=== PATIENT | male | born 1955 | race Caucasian/White ===

== ENCOUNTER → 2020-07-19 15:34 | Outpatient (BNVA) | payer MEDICARE, OTHER, SELFPAY | PROVIDERS: PCP Internal Medicine; Visit Provider Hospitalist | DX: J41.8 Mixed simple and mucopurulent chronic bronchitis (principal); R91.8 Other nonspecific abnormal finding of lung field; J92.9 Pleural plaque without asbestos; F17.200 Nicotine dependence, unspecified, uncomplicated | CPT/HCPCS: 99202 ==

== ENCOUNTER → 2021-01-17 11:20 | Outpatient (BNVA) | payer MEDICARE, OTHER, SELFPAY | PROVIDERS: PCP Internal Medicine; Visit Provider Hospitalist | DX: R91.8 Other nonspecific abnormal finding of lung field (principal); J92.9 Pleural plaque without asbestos; F17.200 Nicotine dependence, unspecified, uncomplicated | CPT/HCPCS: 99212 ==

== ENCOUNTER 2021-06-14 07:45 | Outpatient (REF) | payer MEDICARE, OTHER, SELFPAY ==
--- NOTE | ~2021-06-14 | CT_ITS ---
EXAMINATION: CT CHEST LUNG SCREENING CLINICAL INFORMATION: Current smoker. 30 pack-year history. COMPARISON: Previous chest CTs, most recent 05/31/2020. TECHNIQUE: Multidetector volumetric CT imaging of the chest was performed without contrast using low-dose technique. Additional 2D coronal and sagittal reformatted images and axial 3D maximum intensity projection (MIP) images were generated on the CT workstation. This CT examination was performed using dose optimization techniques as appropriate, variously including the following: *Automated exposure control *Adjustment of mA and/or kV according to patient size (this includes techniques or standardized protocols for targeted exams where dose is matched to indication/reason for exam; i.e. extremities or head) *Use of iterative reconstruction technique DLP: 157 mGy-cm FINDINGS: LUNGS: There is a 4 mm peripheral or subpleural right lower lobe nodule adjacent to the major fissure that is stable. There is a 3 mm peripheral or subpleural left lower lobe nodule along the fissure (axial image 204, series 4) that is able. These probably represent subpleural lymph nodes. The lungs are otherwise clear. No endobronchial or endotracheal lesion. MEDIASTINUM: There is coronary artery calcification. The heart size normal. No pericardial effusion. Upper normal thoracic aorta. Small mediastinal lymph nodes. No enlarged lymph nodes. The mediastinum is otherwise normal. PLEURA: There is no pleural effusion. No pleural mass or thickening. AXILLAE: No lymphadenopathy. UPPER ABDOMEN: Unremarkable. OSSEOUS STRUCTURES: There are severe degenerative changes of the spine. CT/CT lung screening IMPRESSION: Stable small pulmonary nodules probably representing subpleural lymph nodes. Coronary artery calcification. ASSESSMENT: Lung-RADS category 2: Benign RECOMMENDATION: Annual low-dose chest CT follow up recommended.
== END 2021-06-14 07:46 | disposition home or self-care (01) ==
LOC: HO.CT 07:45
PROVIDERS: PCP Internal Medicine; Visit Provider Physician Assistant Medical
DX: F17.210 Nicotine dependence, cigarettes, uncomplicated (principal)
CPT/HCPCS: 71271

== ENCOUNTER → 2022-01-18 10:19 | Outpatient (BNVA) | payer MEDICARE, OTHER, SELFPAY | PROVIDERS: PCP Internal Medicine; Visit Provider Hospitalist | DX: R91.8 Other nonspecific abnormal finding of lung field (principal); J92.9 Pleural plaque without asbestos; F17.200 Nicotine dependence, unspecified, uncomplicated; Z71.6 Tobacco abuse counseling | CPT/HCPCS: 99212 ==

== ENCOUNTER 2022-10-25 09:05 | Outpatient (REF) | payer MEDICARE, OTHER, SELFPAY ==
--- NOTE | ~2022-10-25 | CT_ITS ---
EXAMINATION: CT CHEST SCREENING CLINICAL INFORMATION: Nicotine dependence. COMPARISON: CT chest 06/14/2021 TECHNIQUE: Multidetector volumetric CT imaging of the chest is performed without contrast using low dose technique. Additional 2D coronal and sagittal reformatted images and axial 3D maximum intensity projection (MIP) images are generated on the CT workstation. This CT examination was performed using dose optimization techniques as appropriate, variously including the following: *Automated exposure control *Adjustment of mA and/or kV according to patient size (this includes techniques or standardized protocols for targeted exams where dose is matched to indication/reason for exam; i.e. extremities or head) *Use of iterative reconstruction technique DLP: 87 mGy-cm FINDINGS: LUNGS: The lungs are well-expanded and clear of acute pneumonic process. A former nodule right lower lobe adjacent to major fissure axial image 238/6, 4 mm nodule adjacent to left major fissure left lower lobe axial image 28/4. These nodules are stable. No additional nodules visualized MEDIASTINUM: The thyroid lobes are symmetric and normal. The central trachea and bronchi are widely patent. Heart size and the great vessels are normal caliber. No abnormal mediastinal or hilar lymph nodes seen. No pericardial effusion. CORONARY ARTERY CALCIFICATION: Mild coronary artery calcifications are present. PLEURA: There is no pleural effusion. No pleural mass or thickening. AXILLA: No lymphadenopathy. UPPER ABDOMEN: Visualized liver, spleen, pancreas and bilateral adrenal glands unremarkable. OSSEOUS STRUCTURES: No aggressive lytic or sclerotic process seen. There are degenerative disc changes mid dorsal spine with mild anterior wedging of mid dorsal vertebrae, stable. Ventral CT/CT lung screening IMPRESSION: Small suman fissural nodules right lower lobe and left lower lobe likely lymph nodes. They are stable. No additional nodules seen. Moderate coronary artery calcifications. ASSESSMENT: Lung-RADS category 2: Benign RECOMMENDATION: Low-dose annual CT chest
== END 2022-10-25 09:06 | disposition home or self-care (01) ==
LOC: HO.CT 09:05
PROVIDERS: PCP Internal Medicine; Visit Provider Physician Assistant Medical
DX: Z12.2 Encounter for screening for malignant neoplasm of respiratory organs (principal); F17.210 Nicotine dependence, cigarettes, uncomplicated
CPT/HCPCS: 71271

== ENCOUNTER 2023-10-29 10:11 | Outpatient (REF) | payer MEDICARE, OTHER, SELFPAY ==
--- NOTE | ~2023-10-29 | CT_ITS ---
EXAMINATION: CT LOW-DOSE SCREENING CHEST WITHOUT CONTRAST CLINICAL INFORMATION: Personal history of nicotine dependence. The patient has a 30 pack-year history of smoking, having quit 1 year ago. COMPARISON: CT chest 10/25/2022. TECHNIQUE: Multidetector volumetric CT imaging of the chest is performed on a Siemens SOMATOM Perspective scanner without contrast using low dose technique. Additional 2D coronal and sagittal reformatted images and axial 3D maximum intensity projection (MIP) images are generated on the CT workstation. This CT examination was performed using dose optimization techniques as appropriate, variously including the following: *Automated exposure control *Adjustment of mA and/or kV according to patient size (this includes techniques or standardized protocols for targeted exams where dose is matched to indication/reason for exam; i.e. extremities or head) *Use of iterative reconstruction technique TOTAL EXAM DLP: 127 mGy-cm. CTDIvol: 3.36 mGy. FINDINGS: PULMONARY NODULES: Some tiny unchanged pulmonary nodules are seen, the largest being a right lower lobe perifissural 4 mm lymph node (6:206 compare prior 6:238). LUNGS: Lungs bilaterally symmetrically expanded. There is mild emphysema and bronchial thickening. No effusion or pneumothorax. Central airways patent. MEDIASTINUM: No mediastinal, hilar or axillary adenopathy or free fluid collection. CORONARY ARTERY CALCIFICATION: Extensive. THYROID GLAND: Unremarkable to the extent seen. CARDIOVASCULAR STRUCTURES: Aortic and heart size normal. No pericardial effusion. CHEST WALL/AXILLA: Unremarkable. UPPER ABDOMEN: Included portions of the solid organs in the upper abdomen unremarkable on noncontrast imaging. OSSEOUS STRUCTURES: Again seen is a thoracic kyphosis with thoracic vertebral body wedge compression fractures and degenerative changes. CT/CT lung screening IMPRESSION: 1. No new or suspicious pulmonary nodules. 2. Incidental findings (s category): No significant incidental findings. ASSESSMENT: 1. Lung-RADS Category 2: Benign appearance or behavior of nodules. N/A RECOMMENDATION: Continued routine annual low-dose CT lung screening in 1 year is recommended. An order for CT CHEST LOW DOSE CANCER SCREENING ([id number]) can be placed.
== END 2023-10-29 10:12 | disposition home or self-care (01) ==
LOC: HO.CT 10:11
PROVIDERS: PCP Internal Medicine; Visit Provider Physician Assistant Medical
DX: Z12.2 Encounter for screening for malignant neoplasm of respiratory organs (principal); Z87.891 Personal history of nicotine dependence
CPT/HCPCS: 71271

== ENCOUNTER 2023-11-12 14:15 | Outpatient (AMB) | payer MEDICARE, OTHER, SELFPAY ==
--- NOTE | 2023-11-12 14:32 | HO.NEPHOV_ITS ---
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 He is longstanding diabetic. His blood sugars have been uncontrolled. His last A1c was 11. He denies retinopathy but has neuropathy. He has history of coronary artery disease needing PCI. He denies CVA, CHF, PAD, VINNY. He has not been taking Trulicity. He denies any pedal edema, nausea, vomiting, diarrhea, chest pain, shortness of breath, paroxysmal nocturnal dyspnea, orthopnea, hematuria or orthostatic symptoms. He denies taking excessive nonsteroidal anti- inflammatories. He does not have any epistaxis, recurrent sinusitis, sore throat, renal calculi, flank pain, hemoptysis, hematemesis, melena, new bone or back pain. His serum creatinine has been close to 1.6. He does not check his blood sugar or blood pressure at home. He did not have any new systemic complaints at the time of this office visit. [facility] Medical History (Updated 11/12/23 @ 15:06 by Shubham Braun MD) Hyperlipidemia Hypertension, essential, benign Diabetes mellitus type 2, controlled Personal history of nicotine dependence Obesity Mild dilation of ascending aorta Pneumonia Tobacco dependence Pleural thickening Pulmonary nodules COPD (chronic obstructive pulmonary disease) Family History Father Hypertension Social History Alcohol intake: current Patient Tobacco Use Status: Former Tobacco user Review of Systems Const All systems reviewed & are unremarkable except as noted in HPI and below Physical Exam Vital Signs: Last Vital Signs Pulse 61 11/12/23 14:33 BP 130/80 11/12/23 14:33 Pulse Ox 95 11/12/23 14:33 Oxygen Delivery Method Room Air 11/12/23 14:33 BMI result Body Mass Index 36.1 Const General: comfortable and no acute distress Orientation/consciousness: patient oriented x3 HEENT Head: Yes normocephalic Mouth: Normal oral and palatal mucosa present Eyes EOM: EOMs intact bilaterally Neck Neck: Yes supple Resp Auscultation: clear to auscultation bilaterally Cardio Jugular venous distension: no JVD Rate: regular rate GI Palpation (GI): Soft to palpation Auscultation: normal bowel sounds General: Yes no CVA tenderness Back/Spine/Pelvis Back: no CVA tenderness Skin General skin exam: no rashes or lesions noted Neuro General: patient oriented x3 and moves all extremities Extrem General: Yes no pedal edema Results Reviewed Nephrology Results: No Data to Display Assessment & Plan Assessment & Plan (1) CKD (chronic kidney disease) stage 3, GFR 30-59 ml/min: Code(s): N18.30 - Chronic kidney disease, stage 3 unspecified Category: Medical Qualifiers: Chronic kidney disease stage 3 subtype: stage 3a (GFR 45-59) Qualified Code(s): N18.31 - Chronic kidney disease, stage 3a (2) Hypertension: Code(s): I10 - Essential (primary) hypertension Category: Medical Qualifiers: Hypertension type: primary hypertension Qualified Code(s): I10 - Essential (primary) hypertension Plan Kavon has 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 His serum creatinine has been close to 1.6. He has history of hemoglobin A1c up to 11. He does not take Trulicity. He will benefit from weight loss. Secondary FSGS as well as vascular disease are in the differential. He is on Jardiance. I have ordered blood work including creatinine clearance. I plan to do imaging studies as well as possible renal biopsy based on evolving data. He was encouraged to check his blood sugar and blood pressure at home. He should maintain good hydration and avoid nonsteroidal anti-inflammatories. He is tolerating EFE inhibitor. I shall continue to work him up and optimize his medications based on evolving data. Answered all questions. Follow-up appointment given. Orders: Orders Protein Creatinine Ratio, Ur Today I10 - Essential (primary) hypertension, N18.30 - Chronic kidney disease, stage 3 unspecified Immunofixation Pnl, Serum Today I10 - Essential (primary) hypertension, N18.30 - Chronic kidney disease, stage 3 unspecified Electrolytes Today I10 - Essential (primary) hypertension, N18.30 - Chronic kidney disease, stage 3 unspecified Phospholipase A2 Receptor Pnl Today I10 - Essential (primary) hypertension, N18.30 - Chronic kidney disease, stage 3 unspecified Proteinase 3 PR3 Antibodies Today I10 - Essential (primary) hypertension, N18.30 - Chronic kidney disease, stage 3 unspecified Anti DNA DS Antibody Today I10 - Essential (primary) hypertension, N18.30 - Ch ronic kidney disease, stage 3 unspecified Creatinine Today I10 - Essential (primary) hypertension, N18.30 - Chronic kidney disease, stage 3 unspecified Blood Urea Nitrogen Today I10 - Essential (primary) hypertension, N18.30 - Chronic kidney disease, stage 3 unspecified Calcium Today I10 - Essential (primary) hypertension, N18.30 - Chronic kidney disease, stage 3 unspecified Hepatitis B Core Antibody Today I10 - Essential (primary) hypertension, N18.30 - Chronic kidney disease, stage 3 unspecified Hepatitis B Surface Antigen Today I10 - Essential (primary) hypertension, N18.30 - Chronic kidney disease, stage 3 unspecified Complement C4 Today I10 - Essential (primary) hypertension, N18.30 - Chronic kidney disease, stage 3 unspecified Complement C3 Today I10 - Essential (primary) hypertension, N18.30 - Chronic kidney disease, stage 3 unspecified Anti Glomerular Basement Memb Today I10 - Essential (primary) hypertension, N18.30 - Chronic kidney disease, stage 3 unspecified Myeloperoxidase Antibody Today I10 - Essential (primary) hypertension, N18.30 - Chronic kidney disease, stage 3 unspecified Creatinine Clearance Urine 24U Today I10 - Essential (primary) hypertension, N18.30 - Chronic kidney disease, stage 3 unspecified Coding Level of Care Code New Pt Level 4 (65386) Diagnoses Stage 3a chronic kidney disease N18.31 Chronic kidney disease stage 3 subtype: stage 3a (GFR 45-59) Primary hypertension I10 Hypertension type: primary hypertension
[2023-11-12 14:33] VITALS: BP 130/80; PULSE 61; O2SAT 95; BMI 36.1
== END 2023-11-12 15:11 | disposition home or self-care (01) ==
PROVIDERS: PCP Internal Medicine; Visit Provider Internal Medicine Nephrology
DX: N18.31 Chronic kidney disease, stage 3a (principal); I10 Essential (primary) hypertension
CPT/HCPCS: 99204

== ENCOUNTER → 2023-11-12 14:15 | Outpatient (BNVA) | payer MEDICARE, OTHER, SELFPAY | PROVIDERS: PCP Internal Medicine; Visit Provider Internal Medicine Nephrology | DX: I12.9 Hypertensive chronic kidney disease with stage 1 through stage 4 chronic kidney disease, or unspecified chronic kidney disease (principal); N18.31 Chronic kidney disease, stage 3a | CPT/HCPCS: 99202 ==

== ENCOUNTER 2023-11-26 11:48 | Outpatient (REF) | payer MEDICARE, OTHER, SELFPAY ==
[2023-11-26 18:30] LABS: Anion Gap 15 (12-20); Blood Urea Nitrogen 23 mg/dL (9-16); Calcium 10.3 mg/dL (8.4-10.2); Carbon Dioxide 24 mmol/L (22-29); Chloride 103 mmol/L (96-108); Estimated Glomerular Filt Rate 42; Potassium 4.1 mmol/L (3.3-5.1); Sodium 138 mmol/L (135-145)
[2023-11-26 18:37] LABS: Total Volume 24 Hour Urine 1625 mL
[2023-11-26 18:43] LABS: Protein/Creatinine Ratio, Ur 0.09 (<0.2); Total Protein Urine Random 27 mg/dL (<12)
[2023-11-26 18:57] LABS: Creatinine, 24Hr Urine 1.9 G/Day (1.0-2.0); Creatinine, mg/dL 118.68
[2023-11-26 19:13] LABS: Creatinine (CrCl) 1.65 mg/dL (0.5-1.4); Creatinine Clearance 81.1 mL/min (85-125)
[2023-11-27 08:11] LABS: HBc Num1 0.12 S/CO (0.00-0.79); HBsAGNum1 0.34 S/CO (0.00-0.99); Hepatitis B Core Antibody Nonreactive (Nonreactive); Hepatitis B Surface Antigen Negative (Negative)
[2023-11-28 10:08] LABS: Complement C3 163 mg/dL (82-185)
[2023-11-29 22:38] LABS: IgA 254 mg/dL (70-320); IgG 1042 mg/dL (600-1540); IgM 56 mg/dL (50-300)
[2023-12-03 06:59] LABS: Anti DNA DS Antibody <1 IU/mL; Anti Glomerular Basement Memb <1.0 AI; Myeloperoxidase Antibody <1.0 AI; Proteinase 3 PR3 Antibodies <1.0 AI
[2023-12-06 21:37] LABS: Phospholipase A2 IgG ELISA <4 RU/mL; Phospholipase A2 IgG IFA NEGATIVE (NEGATIVE)
== END 2023-11-26 11:49 | disposition home or self-care (01) ==
LOC: HO.HKASLDS 11:48
PROVIDERS: Visit Provider Internal Medicine Nephrology
DX: I10 Essential (primary) hypertension (principal); N18.30 Chronic kidney disease, stage 3 unspecified
CPT/HCPCS: 36415; 80051; 82310; 82565; 82570; 82575; 82784; 83520; 84156; 84520; 86021; 86160; 86225; 86255; 86334; 86704; 87340

== ENCOUNTER 2024-01-16 10:28 | Outpatient (AMB) | payer MEDICARE, OTHER, SELFPAY ==
--- NOTE | 2024-01-16 11:00 | HO.NEPHOV_ITS ---
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 He is longstanding diabetic. His blood sugars have been uncontrolled. His last A1c was 11. He denies retinopathy but has neuropathy. He has history of coronary artery disease needing PCI. He denies CVA, CHF, PAD, VINNY. He has not been taking Trulicity. He denies any pedal edema, nausea, vomiting, diarrhea, chest pain, shortness of breath, paroxysmal nocturnal dyspnea, orthopnea, hematuria or orthostatic symptoms. He denies taking excessive nonsteroidal anti- inflammatories. He does not have any epistaxis, recurrent sinusitis, sore throat, renal calculi, flank pain, hemoptysis, hematemesis, melena, new bone or back pain. His serum creatinine has been close to 1.6. He does not check his blood sugar or blood pressure at home. He did not have any new systemic complaints at the time of this office visit. [facility] Medical History (Updated 01/16/24 @ 11:16 by Shubham Braun MD) Hyperlipidemia Hypertension, essential, benign Diabetes mellitus type 2, controlled Personal history of nicotine dependence Obesity Mild dilation of ascending aorta Pneumonia Tobacco dependence Pleural thickening Pulmonary nodules COPD (chronic obstructive pulmonary disease) Family History Father Hypertension Social History Alcohol intake: current Patient Tobacco Use Status: Former Tobacco user Review of Systems Const All systems reviewed & are unremarkable except as noted in HPI and below Physical Exam Vital Signs: Last Vital Signs Pulse 64 01/16/24 11:02 BP 134/70 01/16/24 11:02 Pulse Ox 94 01/16/24 11:02 Oxygen Delivery Method Room Air 01/16/24 11:02 BMI result Body Mass Index 36.0 Const General: comfortable and no acute distress Orientation/consciousness: patient oriented x3 HEENT Head: Yes normocephalic Mouth: Normal oral and palatal mucosa present Eyes EOM: EOMs intact bilaterally Neck Neck: Yes supple Resp Auscultation: clear to auscultation bilaterally Cardio Jugular venous distension: no JVD Rate: regular rate GI Palpation (GI): Soft to palpation Auscultation: normal bowel sounds General: Yes no CVA tenderness Back/Spine/Pelvis Back: no CVA tenderness Skin General skin exam: no rashes or lesions noted Neuro General: patient oriented x3 and moves all extremities Extrem General: Yes no pedal edema Results Reviewed Nephrology Results: Sodium 138 mmol/L (135-145) 11/26/23 Potassium 4.1 mmol/L (3.3-5.1) 11/26/23 Chloride 103 mmol/L (96-108) 11/26/23 Carbon Dioxide 24 mmol/L (22-29) 11/26/23 BUN 23 mg/dL (9-16) H 11/26/23 Creatinine 1.65 mg/dL (0.5-1.4) H 11/26/23 Calcium 10.3 mg/dL (8.4-10.2) H 11/26/23 Urine Creatinine 313.50 mg/dL 11/26/23 Protein/Creatinin Ratio 0.09 (<0.2) 11/26/23 Assessment & Plan Assessment & Plan (1) CKD (chronic kidney disease) stage 3, GFR 30-59 ml/min: Code(s): N18.30 - Chronic kidney disease, stage 3 unspecified Category: Medical Qualifiers: Chronic kidney disease stage 3 subtype: stage 3a (GFR 45-59) Qualified Code(s): N18.31 - Chronic kidney disease, stage 3a (2) Hypertension: Code(s): I10 - Essential (primary) hypertension Category: Medical Qualifiers: Hypertension type: primary hypertension Qualified Code(s): I10 - Essential (primary) hypertension (3) Hypercalcemia: Code(s): E83.52 - Hypercalcemia Category: Medical Plan Kavon has 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 His serum creatinine has been close to 1.6. He has history of hemoglobin A1c up to 11. He does not take Trulicity. He will benefit from weight loss. Secondary FSGS as well as vascular disease are in the differential. He is on Jardiance. His creatinine clearance was 81 mls/mt. Rest of work up negative .I have asked him to hold calcium tablets for now. I ordered imaging studies. He was encouraged to check his blood sugar and blood pressure at home. He should maintain good hydration and avoid nonsteroidal anti-inflammatories. He is tolerating EFE inhibitor. I shall continue to work him up and optimize his medications based on evolving data. Answered all questions. Follow-up appointment given. Orders: Orders Creatinine Today E83.52 - Hypercalcemia, I10 - Essential (primary) hypertension, N18.31 - Chronic kidney disease, stage 3a Calcium Today E83.52 - Hypercalcemia, I10 - Essential (primary) hypertension, N 18.31 - Chronic kidney disease, stage 3a Parathyroid Hormone Intact Today E83.52 - Hypercalcemia, I10 - Essential (primary) hypertension, N18.31 - Chronic kidney disease, stage 3a Vitamin D 25-OH Total Today E83.52 - Hypercalcemia, I10 - Essential (primary) hypertension, N18.31 - Chronic kidney disease, stage 3a US renal BI Today I10 - Essential (primary) hypertension, N18.31 - Chronic kidney disease, stage 3a Blood Urea Nitrogen Today E83.52 - Hypercalcemia, I10 - Essential (primary) hy pertension, N18.31 - Chronic kidney disease, stage 3a Electrolytes Today E83.52 - Hypercalcemia, I10 - Essential (primary) hypertension, N18.31 - Chronic kidney disease, stage 3a Coding Level of Care Code Est Pt Level 4 (69557) Diagnoses Stage 3a chronic kidney disease N18.31 Chronic kidney disease stage 3 subtype: stage 3a (GFR 45-59) Primary hypertension I10 Hypertension type: primary hypertension Hypercalcemia E83.52
[2024-01-16 11:02] VITALS: BP 134/70; PULSE 64; O2SAT 94; BMI 36.0
== END 2024-01-16 11:21 | disposition home or self-care (01) ==
PROVIDERS: PCP Internal Medicine; Visit Provider Internal Medicine Nephrology
DX: N18.31 Chronic kidney disease, stage 3a (principal); I10 Essential (primary) hypertension; E83.52 Hypercalcemia
CPT/HCPCS: 99214

== ENCOUNTER → 2024-01-16 10:28 | Outpatient (BNVA) | payer MEDICARE, OTHER, SELFPAY | PROVIDERS: PCP Internal Medicine; Visit Provider Internal Medicine Nephrology | DX: E11.22 Type 2 diabetes mellitus with diabetic chronic kidney disease (principal); I12.9 Hypertensive chronic kidney disease with stage 1 through stage 4 chronic kidney disease, or unspecified chronic kidney disease; N18.31 Chronic kidney disease, stage 3a; E83.52 Hypercalcemia | CPT/HCPCS: 99212 ==

== ENCOUNTER 2024-01-29 14:00 | Outpatient (REF) | payer MEDICARE, OTHER, SELFPAY ==
--- NOTE | ~2024-01-29 | US_ITS ---
EXAMINATION: US RETROPERITONEAL COMPLETE (RENAL) CLINICAL INFORMATION: Chronic renal disease stage IIIa. COMPARISON: None available. TECHNIQUE: Real-time imaging of the kidneys and bladder. FINDINGS: RIGHT KIDNEY: 11.1 x 4.8 x 4.4 cm (SAG x AP x TRV). The kidney is normal in size, contour, and echogenicity. Renal cortical thickness is normal. No calculi or focal parenchymal lesions. No hydronephrosis. LEFT KIDNEY: 11.4 x 6.0 x 5.4 cm (SAG x AP x TRV). The kidney is normal in size, contour, and echogenicity. Renal cortical thickness is normal. No calculi or focal parenchymal lesions. No hydronephrosis. The bladder was not imaged. Incidental note is made of a simple appearing cyst in the right lobe of the liver 13 x 10 x 11 mm. US/US renal BI IMPRESSION: No suspicious renal mass or hydronephrosis.. Electronically signed by: Brigido Torres MD 01/29/2024 04:49 PM EDT
== END 2024-01-29 14:01 | disposition home or self-care (01) ==
LOC: HO.US 14:00
PROVIDERS: PCP Internal Medicine; Visit Provider Internal Medicine Nephrology
DX: I12.9 Hypertensive chronic kidney disease with stage 1 through stage 4 chronic kidney disease, or unspecified chronic kidney disease (principal); N18.31 Chronic kidney disease, stage 3a
CPT/HCPCS: 76775

== ENCOUNTER 2024-07-23 14:12 | Outpatient (AMB) | payer MEDICARE, OTHER, SELFPAY ==
--- NOTE | 2024-07-23 14:16 | HO.NEPHOV_ITS ---
Vital Signs 07/23/24 14:17 Height 5 ft 10.5 in Weight 254 lb 2 oz BMI 35.9 BP 118/62 Blood Pressure Location Lt brachial Position Sitting Intake Visit Reasons: Pt missed 07/16/24-Conf Document Control Assistant Required: No Accompanied by: Self / Same As Patient Allergies No Known Allergies Allergy (Verified 07/23/24 14:16) HPI Comments Details: Kavon was seen in follow up for CKD and hypertension. He is longstanding diabetic. His blood sugars have been uncontrolled. His last A1c was still over 10. He denies retinopathy but has neuropathy. He has history of coronary artery disease needing PCI. He denies CVA, CHF, PAD, VINNY. He has not been taking Trulicity. He denies any pedal edema, nausea, vomiting, diarrhea, chest pain, shortness of breath, paroxysmal nocturnal dyspnea, orthopnea, hematuria or orthostatic symptoms. He denies taking excessive nonsteroidal anti- inflammatories. He does not have any epistaxis, recurrent sinusitis, sore throat, renal calculi, flank pain, hemoptysis, hematemesis, melena, new bone or back pain. His serum creatinine has been close to 1.6. He does not check his blood sugar or blood pressure at home. He did not have any new systemic complaints at the time of this office visit. [facility] Medical History (Updated 01/16/24 @ 11:16 by Shubham Braun MD) Hyperlipidemia Hypertension, essential, benign Diabetes mellitus type 2, controlled Personal history of nicotine dependence Obesity Mild dilation of ascending aorta Pneumonia Tobacco dependence Pleural thickening Pulmonary nodules COPD (chronic obstructive pulmonary disease) Family History Father Hypertension Social History Alcohol intake: current Patient Tobacco Use Status: Former Tobacco user Review of Systems Const All systems reviewed & are unremarkable except as noted in HPI and below Physical Exam Vital Signs: Last Vital Signs BP 118/62 07/23/24 14:17 BMI result Body Mass Index 35.9 Const General: comfortable and no acute distress Orientation/consciousness: patient oriented x3 HEENT Head: Yes normocephalic Mouth: Normal oral and palatal mucosa present Eyes EOM: EOMs intact bilaterally Neck Neck: Yes supple Resp Auscultation: clear to auscultation bilaterally Cardio Jugular venous distension: no JVD Rate: regular rate GI Palpation (GI): Soft to palpation Auscultation: normal bowel sounds General: Yes no CVA tenderness Back/Spine/Pelvis Back: no CVA tenderness Skin General skin exam: no rashes or lesions noted Neuro General: patient oriented x3 and moves all extremities Extrem General: Yes no pedal edema Assessment & Plan Assessment & Plan (1) Hypertension: Code(s): I10 - Essential (primary) hypertension Category: Medical Qualifiers: Hypertension type: primary hypertension Qualified Code(s): I10 - Essential (primary) hypertension (2) CKD (chronic kidney disease) stage 3, GFR 30-59 ml/min: Code(s): N18.30 - Chronic kidney disease, stage 3 unspecified Category: Medical Qualifiers: Chronic kidney disease stage 3 subtype: stage 3a (GFR 45-59) Qualified Code(s): N18.31 - Chronic kidney disease, stage 3a Tyson Jacobson has 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 His serum creatinine has been close to 1.6. He has history of hemoglobin A1c up to 11. He does not take Trulicity. He will benefit from weight loss. Secondary FSGS as well as vascular disease are in the differential. He is on Jardiance which I increased to 25 mg daily. His creatinine clearance was 81 mls/mt. Rest of work up negative . He was encouraged to check his blood sugar and blood pressure at home. He should maintain good hydration and avoid nonsteroidal anti- inflammatories. He is tolerating EFE inhibitor. I shall continue to work him up and optimize his medications based on evolving data. Answered all questions. Follow-up appointment given Orders: Orders Protein Creatinine Ratio, Ur 6 Months I10 - Essential (primary) hypertension, N18.31 - Chronic kidney disease, stage 3a Creatinine 6 Months I10 - Essential (primary) hypertension, N18.31 - Chronic kidney disease, stage 3a Blood Urea Nitrogen 6 Months I10 - Essential (primary) hypertension, N18.31 - Chronic kidney disease, stage 3a Electrolytes 6 Months I10 - Essential (primary) hypertension, N18.31 - Chronic kidney disease, stage 3a Calcium 6 Months I10 - Essential (primary) hypertension, N18.31 - Chronic kidney disease, stage 3a Medications: Changed From empagliflozin (Jardiance) 10 mg PO DAILY To empagliflozin 25 mg PO DAILY 30 days 30 tabs 6RF Coding Level of Care Code Est Pt Level 4 (95024) Diagnoses Primary hypertension I10 Hypertension type: primary hypertension Stage 3a chronic kidney disease N18.31 Chronic kidney disease stage 3 subtype: stage 3a (GFR 45-59)
[2024-07-23 14:17] VITALS: BP 118/62; BMI 35.9
--- OUTSIDE RECORDS SUMMARY | 2024-07-23 15:19 | XMS_ITS | Clinical Summary ---
Author Organization [facility] ity Address [address] [place] [address] Care Team Providers Care Junior Network Engineer Name Role Phone Brayan Bob MD Primary Care Provider Social History Tobacco Use Types Packs/Day Years Used Date Smoking Tobacco: Never Assessed Sex and Gender Information Value Date Recorded Sex Assigned at Not on file Legal Sex Male 12:58 PM EST Gender Identity Not on file Sexual Orientation Not on file Last Filed Vital Signs Vital Sign Reading Time Taken Comments Blood Pressure 118/70 10/28/2022 1:14 PM EDT L A rm Pulse 85 10/28/2022 1:14 PM EDT Temperature - - Respiratory Rate - - Oxygen Saturation - - Inhaled Oxygen Concentration - - Weight - - Height - - Body Mass Index - - Plan of Treatment Health Maintenance Due Date Last Done Comments DTaP,Tdap,and Td Vaccines (1 - Tdap) 1974 Pneumococcal Vaccine: 50+ Ye ars (1 of 1 - PCV) 2005 Zoster Vaccines (1 of 2) 2005 Abdominal Aortic Aneurysm (A AA) Screen 05/01/2022 Cholesterol Screening (Lipid Panel) 05/01/2022 Colorectal Cancer Screening: Colonoscopy 05/01/2022 Depression Screening 05/01/2022 Falls Risk Assessment 05/01/2022 Hepatitis C Screening 05/01/2022 Social Influencers of Health Screening 05/01/2022 COVID-19 Vaccine ( - 2023-2 5 season) 2024 Influenza Vaccine (#1) 2024 RSV Immunization Patients 60 + Years Old (1 - 1-dose 75+ series) 2030 HIB Vaccines Aged Out No longer eligi ble based on patient's age to complete this topic HPV Vaccines Aged Out No longer eligi ble based on patient's age to complete this topic Hepatitis A Vaccines Aged Out No long er eligible based on patient's age to complete this topic Hepatitis B Vaccines Aged Out No long er eligible based on patient's age to complete this topic IPV Vaccines Aged Out No longer eligi ble based on patient's age to complete this topic MMR Vaccines Aged Out No longer eligi ble based on patient's age to complete this topic Meningococcal ACWY Vaccine Aged Out N o longer eligible based on patient's age to complete this topic Meningococcal B Vacine Aged Out No lo nger eligible based on patient's age to complete this topic RSV Immunization Patients Un tom 20 months Aged Out No longer eligible b ased on patient's age to complete this topic Varicella Vaccines Aged Out No longer eligible based on patient's age to complete this topic Care Teams Junior Network Engineer Relationship Specialty Start Date End Date Brayan Bob MD PCP - General 02/16/16
--- OUTSIDE RECORDS SUMMARY | 2024-07-23 15:19 | XMS_ITS | Continuity of Care Document ---
Author Organization [facility] [address] [place] [address] Phone [phone] Care Team Providers Care Digital Technician Name Role Phone Brayan Bob M.D. Care Team Information Recei uzair [phone] Problems Active Problems Provider Date Type 2 diabetes mellitus Talya Villareal M.D. Onset: 07/16/2022 Hypogonadism Talya Villareal M.D. Ons et: 07/16/2022 Diabetic peripheral neuropathy Talya monroe M.D. Onset: 07/16/2022 Coronary atherosclerosis Talya Villareal M.D. Onset: 07/16/2022 Essential hypertension Helena Hoffman Onset: 07/16/2022 Dyslipidemia Talya Villareal M.D. Ons et: 07/16/2022 Crohn's disease Talya Villareal M.D. Ons et: 07/16/2022 Degeneration of cervical intervertebral disc Talay Villareal M.D. Onset: 07/16/2022 Myocardial infarction Maribell Hoffman Onset: 07/16/2022 Tobacco dependence in remission Talya Larkin M.D. 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 06/04/2024 Freestyle Danna 2/[place]/Flash Glucose Monitoring Pvtyer1Zfvuat Device use as directed with sensors for testing blood sugar 1unanuj E11.42 Talya Villareal M.D. 10/12/2022 Freestyle Danna 2/Sensor/Flash Glucose Monitoring Sqyirv3Snixdz Misc 1 sensor to skin every fourteen days as directed 6units E11.42 Talya Villareal M.D. 07/17/[address] 1 by mouth every day 90tabs Talya Villareal M.D. 07/16/2022 Metformin HCL ER (Osm)500mg Tablets ER 24HR Take 4 tablets daily Talya Villareal M.D. 07/16/2022 Vlghgscmb0di/0.5ML Solution Pen-Inject 1 injection subcutaneously every week 6ml Talya Villareal M.D. 07/16/2022 Glipizide ER10mg Tablets ER 24HR Take 2 Tablets By Mouth Daily as Directed 60tabs Talya Villareal M.D. 03/22/2022 Pioglitazone UXT30nz Tablets take 1 tablet by mouth every day 90tabs Talya Villareal M.D. 01/29/2022 Nebivolol HCL5mg Tablets Take 1 tablet daily Brayan Bob M.D. BD Pen Needle/Short/Ultra- Fine/31G X 8mm31G X 8 mm Misc Brayan Bob M.D. BD Pen Needle/Short/Ultra- Fine/31G X 8mm31G X 8 mm Misc 3 Times A Day Brayan Bob M.D. Basaglar Tpwhsrc579Xbmp/ML Solution Pen-Inject Inject 80 Units Into The Skin Once A Day Brayan Bob M.D. Woagrccutt37uf Tablets Take 1 tablet daily Brayan Bob M.D. Atorvastatin Yhbybya94dy Tablets Take 1 tablet daily Bryaan Bob M.D. Vitamin [id number] Tablets ER 1 by mouth every day Unknown 0000/0 000 Vital Signs Date Vital Result Comment 06/04/2024 2:35pm BP Systolic 144 mmHg BP Diastolic 76 mmHg Heart Rate 78 /min Height 70.5 inches 5'10.50 Weight 250.00 lb BMI (Body Mass Index) 35.4 kg/m2 Results Test Acquired Date Facility Test Result H/L Range N ote Laboratory test finding 06/04/2024 Inhouse Glucose Fingerstick 265 Laboratory test finding 07/16/2022 Inhouse Glucose Fingerstick 441 Hemoglobin A1c 9.8% Medical Devices Description No Information Available Encounters Type Date Location Provider Dx Diagnosis Office Visit 06/04/2024 2:30p Main Office Talya Villareal M.D. E11.65 Type 2 diabetes mellitus with hyperglycemia I25.10 Athscl heart disease of [place] coronary artery w/o ang pctrs I10 Essential (primary) hypertension E11.42 Type 2 diabetes ernestina itus with diabetic polyneuropathy Assessments Date Code Description Provider 06/04/2024 E11.65 Type 2 diabetes mellitus with hyperglycemia Talya Villareal M.D. 06/04/2024 I25.10 Atherosclerotic heart disease of [place] coronary artery without angina pectoris Talya Villareal M.D. 06/04/2024 I10 Essential (primary) hyperten makayla Talya Villareal M.D. 06/04/2024 E11.42 Type 2 diabetes mellitus with diabetic polyneuropathy Talya Villareal M.D. Plan of Treatment Future Appointment(s):* 10/01/2024 11:00 am - Talya Villareal M.D. at Main Office 07/16/2022 - Talya Villareal M.D.* E11.42 Type 2 diabetes mellitus with diabetic polyneuropathy * I25.10 Atherosclerotic heart disease of [place] coronary artery without angina pectoris * I10 Essential (primary) hypertension * Functional Status Description No Information Available Mental Status Description No Information Available Referrals Description No Information Available
== END 2024-07-23 14:46 | disposition home or self-care (01) ==
PROVIDERS: PCP Internal Medicine; Visit Provider Internal Medicine Nephrology
DX: I10 Essential (primary) hypertension (principal); N18.31 Chronic kidney disease, stage 3a
CPT/HCPCS: 99214

== ENCOUNTER → 2024-07-23 14:12 | Outpatient (BNVA) | payer MEDICARE, OTHER, SELFPAY | PROVIDERS: PCP Internal Medicine; Visit Provider Internal Medicine Nephrology | DX: I12.9 Hypertensive chronic kidney disease with stage 1 through stage 4 chronic kidney disease, or unspecified chronic kidney disease (principal); N18.31 Chronic kidney disease, stage 3a | CPT/HCPCS: 99212 ==

== ENCOUNTER 2024-11-25 10:05 | Outpatient (REF) | payer MEDICARE, OTHER, SELFPAY ==
--- NOTE | ~2024-11-25 | CT_ITS ---
CLINICAL HISTORY: Z87.891 - Personal history of nicotine dependence CT lung cancer screening (LDCT) Comparison: CT/MN/SR - CT LUNG SCREENING - 10/29/23 10:33 EDT Technique: Axial CT images of the chest using low-dose technique. Referring provider counseled the patient on shared decision-making for LDCT screening. Additional counseling was provided on smoking cessation. Effective radiation dose total: DLP 58 mGycm, CTDIvol 2 mGy. Findings: Lung: The trachea and central bronchi are patent. No dense consolidation, pleural effusion or pneumothorax. Oval nodule along the fissure in the right lower lobe appears most consistent with an intrapulmonary lymph node seen on image 65 of series 4. This is stable. Coronary artery calcifications: Heavy coronary calcium. Heart size is normal. Ascending aorta measures 4.1 cm, stable. No pericardial effusion. No adenopathy. Unremarkable esophagus. Limited upper abdomen: Unremarkable Other: No acute osseous findings. Thoracic spondylosis. Impression: No suspicious pulmonary nodules or masses. No acute cardiopulmonary disease. Lung rads category 2 Category 1: Normal; continue annual screening Category 2: Benign appearance or behavior, continue annual screening Category 3: Probably benign, [address] recommended Category 4A: Suspicious, [address] recommended; may consider PET/CT Category 4B: Suspicious, Additional diagnostics and/or tissue sampling recommended Category 4X: Suspicious, Additional diagnostics and/or tissue sampling recommended Category 0: Recalls (incomplete screen due to Incomplete coverage, Noise, Respiratory motion, Expiration, Obscured by acute abnormality) This document has been electronically signed by: Marilu Solomon MD on 11/28/2024 08:20:02
--- OUTSIDE RECORDS SUMMARY | 2024-11-25 11:34 | XMS_ITS | Continuity of Care Document ---
Author Organization [facility] [address] [place] [address] Phone [phone] Care Team Providers Care Resident Care Manager Name Role Phone Brayan Bob M.D. Care Team Information Recei uzair [phone] Problems Active Problems Provider Date Type 2 diabetes mellitus Talya Villareal M.D. Onset: 07/16/2022 Hypogonadism Talya Villareal M.D. Ons et: 07/16/2022 Diabetic peripheral neuropathy Talya monroe M.D. Onset: 07/16/2022 Coronary atherosclerosis Talya Villareal M.D. Onset: 07/16/2022 Essential hypertension Helena Hoffman Onset: 07/16/2022 Dyslipidemia Talya Villareal M.D. Ons et: 07/16/2022 Crohn's disease Talya Villareal M.D. Ons et: 07/16/2022 Degeneration of cervical intervertebral disc Talya Villareal M.D. Onset: 07/16/2022 Myocardial infarction Maribell Hoffman Onset: 07/16/2022 Tobacco dependence in remission Talya Larkin M.D. 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 06/04/2024 Freestyle Danna 2/[place]/Flash Glucose Monitoring Jibysf2Kogilg Device use as directed with sensors for testing blood sugar 1units E11.42 Talya Villareal M.D. 10/12/2022 Freestyle Danna 2/Sensor/Flash Glucose Monitoring Daedal9Mewchr Misc 1 sensor to skin every fourteen days as directed 6units E11.42 Talya Villareal M.D. 07/17/[address] 1 by mouth every day 90tabs Talya Villareal M.D. 07/16/2022 Metformin HCL ER (Osm)500mg Tablets ER 24HR Take 4 tablets daily Talya Villareal M.D. 07/16/2022 Snrkxrmnb1ha/0.5ML Solution Pen-Inject 1 injection subcutaneously every week 6ml Talya Villareal M.D. 07/16/2022 Glipizide ER10mg Tablets ER 24HR Take 2 Tablets By Mouth Daily as Directed 180tabs Talya Villareal M.D. 03/22/2022 Pioglitazone AGQ57gz Tablets take 1 tablet by mouth every day 90tabs Talya Villareal M.D. 01/29/2022 Nebivolol HCL5mg Tablets Take 1 tablet daily Brayan Bob M.D. BD Pen Needle/Short/Ultra- Fine/31G X 8mm31G X 8 mm Misc Brayan Bob M.D. BD Pen Needle/Short/Ultra- Fine/31G X 8mm31G X 8 mm Misc 3 Times A Day Brayan Bob M.D. Basaglar Qwwtdfl941Dncm/ML Solution Pen-Inject Inject 80 Units Into The Skin Once A Day Brayan Bob M.D. Nqogsbexfi23ot Tablets Take 1 tablet daily Brayan Bob M.D. Atorvastatin Hkrbqqx00ae Tablets Take 1 tablet daily Brayan Bob M.D. Vitamin W351399fgd Tablets ER 1 by mouth every day Unknown 0000/0 000 Vital Signs Date Vital Result Comment 06/04/2024 2:35pm BP Systolic 144 mmHg BP Diastolic 76 mmHg Heart Rate 78 /min Height 70.5 inches 5'10.50 Weight 250.00 lb BMI (Body Mass Index) 35.4 kg/m2 Results Test Acquired Date Facility Test Result H/L Range N ote Glucose Fingerstick 06/04/2024 Inhouse Glucose Fingerstick 265 Glucose Fingerstick 07/16/2022 Inhouse Glucose Fingerstick 441 Hemoglobin A1c 07/16/2022 Inhouse Hemoglobin A1c 9.8% Medical Devices Description No Information Available Encounters Type Date Location Provider Dx Diagnosis Office Visit 06/04/2024 2:30p Main Office Talya Villareal M.D. E11.65 Type 2 diabetes mellitus with hyperglycemia I25.10 Athscl heart disease of [place] coronary artery w/o ang pctrs I10 Essential (primary) hypertension E11.42 Type 2 diabetes ernestina itus with diabetic polyneuropathy Assessments Date Code Description Provider 06/04/2024 E11.65 Type 2 diabetes mellitus with hyperglycemia Talya Villareal M.D. 06/04/2024 I25.10 Atherosclerotic heart disease of [place] coronary artery without angina pectoris Talya Villareal M.D. 06/04/2024 I10 Essential (primary) hyperten makayla Talya Villareal M.D. 06/04/2024 E11.42 Type 2 diabetes mellitus with diabetic polyneuropathy Talya Villareal M.D. Plan of Treatment Future Appointment(s):* 01/20/2025 3:15 pm - Talya Villareal M.D. at Main Office 07/16/2022 - Talya Villareal M.D.* E11.42 Type 2 diabetes mellitus with diabetic polyneuropathy * I25.10 Atherosclerotic heart disease of [place] coronary artery without angina pectoris * I10 Essential (primary) hypertension * Functional Status Description No Information Available Mental Status Description No Information Available Referrals Description No Information Available
== END 2024-11-25 10:06 | disposition home or self-care (01) ==
LOC: HO.CT 10:05
PROVIDERS: PCP Internal Medicine; Visit Provider Physician Assistant Medical
DX: Z12.2 Encounter for screening for malignant neoplasm of respiratory organs (principal); Z87.891 Personal history of nicotine dependence
CPT/HCPCS: 71271

== ENCOUNTER → 2024-11-25 10:06 | Outpatient (BNV) | payer MEDICARE, OTHER, SELFPAY | PROVIDERS: PCP Internal Medicine; Visit Provider Radiology Diagnostic Radiology | DX: Z87.891 Personal history of nicotine dependence (principal) | CPT/HCPCS: 71271 ==

== ENCOUNTER 2025-01-15 14:25 | Outpatient (REF) | payer MEDICARE, OTHER, SELFPAY ==
--- OUTSIDE RECORDS SUMMARY | 2025-01-10 23:59 | XMS_ITS | Continuity of Care Document ---
Author Organization [facility] ter Address [address] [place] [address] Care Team Providers Care Bunker Worker Name Role Phone Brayan Bob MD Primary Care Physician Encounter [facility] [place] Date(s): 12/09/24 - 01/10/[address] [address] Attending Physician: Brayan Bob MD Admitting Physician: Brayan Bob MD Referring Physician: Brayan Bob MD Encounter Type: Pre-Outpt Allergies, Adverse Reactions, Alerts No Known Allergies Immunizations Given and Recorded Vaccine Date Status Refusal Reason pneumococcal 23-valent vaccine 12/03/18 Given Medications Actos 30 mg oral tablet 1 tablet, By Mouth, Daily, # 30 tablet, 0 Refills, Maintenance, 10/11/10 9:29:09 AM EDT, Tablet Start Date: 10/11/10 Status: Ordered Quantity: 30.0 Unit: tablet Repeat number: 1 amLODIPine 5 mg oral tablet 5 mg, By Mouth, Daily, # 30 tablet, Refills 5, Tot. Refills 5, Maintenance, 12/03/18 2:40:59 PM EDT, Route to Pharmacy Electronically, [facility]/pharmacy #[id number] Start Date: 12/03/18 Status: Ordered Quantity: 30.0 Unit: tablet Repeat number: 6 aspirin 81 mg oral tablet 81 mg, 1, tablet, By Mouth, Daily, 0 Refills Start Date: 07/12/06 Status: Ordered Repeat number: 1 atorvastatin 80 mg oral tablet 1 tablet = 80 mg, By Mouth, Daily, Please discontinue Pravastatin 80mg daily that you were taking previously, # 30 tablet, 5 Refills, Maintenance, Tablet, Route to Pharmacy Electronically, [id number], [facility]/pharmacy #[id number] Start Date: 12/03/18 Status: Ordered Quantity: 30.0 Unit: tablet Repeat number: 6 Basaglruiz MarecloPen 100 units/mL subcutaneous solution = 60 units, Subcutaneous Infusion, Daily, 0 Refills, Maintenance, 12/02/18 11:13:48 PM EDT Start Date: 12/02/18 Status: Ordered Repeat number: 1 Bystolic 5 mg oral tablet 1 tablet, By Mouth, Daily, # 30 tablet, 0 Refills, Maintenance, 10/11/10 9:28:51 AM EDT, Tablet Start Date: 10/11/10 Status: Ordered Quantity: 30.0 Unit: tablet Repeat number: 1 glipiZIDE 10 mg oral tablet, extended release 1 tablet = 10 mg, By Mouth, Daily, 0 Refills, Maintenance, 12/02/18 11:16:54 PM EDT Start Date: 12/02/18 Status: Ordered Repeat number: 1 metformin extended release = 2,000 mg, By Mouth, Daily, 0 Refills, Maintenance, 10/11/10 9:29:24 AM EDT Start Date: 10/11/10 Status: Ordered Repeat number: 1 pravastatin 80 mg oral tablet TAKE 1 TABLET BY MOUTH EVERY DAY Start Date: 10/29/19 Status: Ordered Repeat number: 1 Trulicity Pen 1.5 mg/0.5 mL subcutaneous solution 0.5 mL = 1.5 mg, Subcutaneous Injection, Every week, 0 Refills, Maintenance, 12/03/18 1:41:17 AM EDT,Solution Start Date: 12/03/18 Status: Ordered Repeat number: 1 Zestril 20 mg oral tablet 20 mg, 1, tablet, By Mouth, Daily, 0 Refills Start Date: 07/12/06 Status: Ordered Repeat number: 1 Problem List Condition Confirmation Course Effective Dates Status Health St [facility] Informant CD - Crohn's disease Confirmed Active Social History Social History Type Response Smoking Status 10 or more cigarette s (1/2 pack or more)/day in last 30 days entered on: 02/24/19 Sex Sex Representation Male (finding) Patient Care team information Care Team Personnel Name: Brayan Bob MD Position: [facility] Outreach Member Role: PCP Address: [address] [place] [address] Telecom: Name: Shanelle Rodriguez RN Position: [facility] SN RN Member Role: Primary Care Nurse Care Team Related Persons Name: AYAKA GONG Name: WILL GONG Insurance Providers Guarantor name: EMI Health Plan Information #: 1 Payer: MEDICARE B Payer Identifier: Member Number: [id number] Group Number: Subscriber Identifier: [id number] Relationship to Subscriber: self Coverage Type: NA Coverage Verification Date: Telecom: Address: Health Plan Information #: 2 Payer: [facility] INDEMNITY PLAN Payer Identifier: Member Number: [id number] Group Number: [id number] Subscriber Identifier: [id number] Relationship to Subscriber: spouse Coverage Type: Commercial Indemnity Coverage Verification Date: Telecom: Address:
--- OUTSIDE RECORDS SUMMARY | 2025-01-15 14:29 | XMS_ITS | Clinical Summary ---
Author Organization [facility] ity Address [address] [place] [address] Care Team Providers Care [facility] Name Role Phone Brayan Bob MD Primary Care Provider [phone] Social History Tobacco Use Types Packs/Day Years [...] Panel) 05/01/2022 Colorectal Cancer Screening: Colonoscopy 05/01/2022 Falls Risk Assessment 05/01/2022 Hepatitis C Screening 05/01/2022 Social Influencers of Health Screening 05/01/2022 COVID-19 Vaccine ( - 2023-2 5 season) 2024 Depression Screening 06/03/2024 Influenza Vaccine (#1) 2025 RSV Immunization Adult [place] (1 - 1-dose 75+ series) 2030 HIB [...] age to complete this topic Meningococcal B Vaccine Aged Out No l onger eligible based on patient's age to complete this topic RSV Immunization Patients Un tom 20 months Aged Out No longer eligible b ased on patient's age to complete this topic Varicella Vaccines Aged Out No longer eligible based on patient's age to complete this topic Care Teams [facility] Relationship Specialty Start Date End Date Brayan Bob MD PCP - General 02/16/16
--- OUTSIDE RECORDS SUMMARY | 2025-01-15 14:29 | XMS_ITS | Continuity of Care Document ---
Author Organization [facility] [address] [place] [address] Phone [phone] Care Team Providers Care Anode Rebuilder Name Role Phone Brayan Bob M.D. Care Team Information Recei uzair [phone] Problems Active Problems Provider Date Type 2 diabetes mellitus Talya Villareal M.D. Onset: 07/16/2022 Hypogonadism Talya Villareal M.D. Ons et: 07/16/2022 Diabetic peripheral neuropathy Talya monroe M.D. Onset: 07/16/2022 Coronary atherosclerosis Talya Villareal M.D. Onset: 07/16/2022 Essential hypertension Helena Hoffman Onset: 07/16/2022 Dyslipidemia aTlya Villareal M.D. Ons et: 07/16/2022 Crohn's disease Talya Villareal M.D. Ons et: 07/16/2022 Degeneration of cervical intervertebral disc Talya Villareal M.D. Onset: 07/16/2022 Myocardial infarction Maribell Hoffman Onset: 07/16/2022 Tobacco dependence in remission Talya Larkin M.D. 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 06/04/2024 Freestyle Danna 2/[place]/Flash Glucose Monitoring Cwnjvs7Byvxvy Device use as directed with sensors for testing blood sugar 1units E11.42 aTlya Villareal M.D. 10/12/2022 Freestyle Danna 2/Sensor/Flash Glucose Monitoring Ecbbfb5Tqllsm Misc 1 sensor to skin every fourteen days as directed 6units E11.42 Talya Villareal M.D. 07/17/[address] 1 by mouth every day 90tabs Talya Villareal M.D. 07/16/2022 Metformin HCL ER (Osm)500mg Tablets ER 24HR Take 4 tablets daily Talya Villareal M.D. 07/16/2022 Smmhjacpv3sh/0.5ML Solution Pen-Inject 1 injection subcutaneously every week 6ml Tlaya Villareal M.D. 07/16/2022 Glipizide ER10mg Tablets ER 24HR Take 2 Tablets By Mouth Daily as Directed 180tabs Talya Villareal M.D. 03/22/2022 Pioglitazone VDN09sc Tablets take 1 tablet by mouth every day 90tabs Talya Villareal M.D. 01/29/2022 Nebivolol HCL5mg Tablets Take 1 tablet daily Brayan Bob M.D. BD Pen Needle/Short/Ultra- Fine/31G X 8mm31G X 8 mm Misc Brayan Bob M.D. BD Pen Needle/Short/Ultra- Fine/31G X 8mm31G X 8 mm Misc 3 Times A Day Brayan Bob M.D. Basaglar Zxxtwgt585Oxfu/ML Solution Pen-Inject Inject 80 Units Into The Skin Once A Day Brayan Bob M.D. Jwebymbvez12vs Tablets Take 1 tablet daily Brayan Bob M.D. Atorvastatin Rkkfngc75nb Tablets Take 1 tablet daily Brayan Bob M.D. Vitamin I190573awc Tablets ER 1 by mouth every day [...] with hyperglycemia I25.10 Athscl heart disease of [place] coronary artery w/o ang pctrs I10 Essential (primary) hypertension E11.42 Type 2 diabetes ernestina itus with diabetic polyneuropathy Assessments Date Code Description Provider 06/04/2024 E11.65 Type 2 diabetes mellitus with hyperglycemia Talya Villareal M.D. 06/04/2024 I25.10 Atherosclerotic heart disease of [place] coronary artery without angina pectoris Talya Villareal M.D. 06/04/2024 I10 Essential (primary) hyperten makayla Talya Villareal M.D. 06/04/2024 E11.42 Type 2 diabetes mellitus with diabetic polyneuropathy Talya Villareal M.D. Plan of Treatment Future Appointment(s):* 05/12/2025 3:15 pm - Talya Villareal M.D. at Main Office * 01/20/2025 3:15 pm - Talya Villareal M.D. at Main Office 07/16/2022 - Talya Villareal M.D.* E11.42 Type 2 diabetes mellitus with diabetic polyneuropathy * I25.10 Atherosclerotic heart disease of [place] coronary artery without angina pectoris * I10 Essential (primary) hypertension * Functional Status Description No Information Available Mental Status Description No Information Available Referrals Description No Information Available
[2025-01-15 18:01] LABS: Anion Gap 19 (12-20); Blood Urea Nitrogen 25 mg/dL (9-16); Calcium 10.0 mg/dL (8.4-10.2); Carbon Dioxide 22 mmol/L (22-29); Chloride 99 mmol/L (96-108); Estimated Glomerular Filt Rate 38; Potassium 4.5 mmol/L (3.3-5.1); Sodium 135 mmol/L (135-145)
[2025-01-15 18:12] LABS: Total Protein Urine Random < 7 mg/dL (<12)
== END 2025-01-15 14:26 | disposition home or self-care (01) ==
LOC: HO.HKASLDS 14:25
PROVIDERS: Visit Provider Internal Medicine Nephrology
DX: I12.9 Hypertensive chronic kidney disease with stage 1 through stage 4 chronic kidney disease, or unspecified chronic kidney disease (principal); N18.31 Chronic kidney disease, stage 3a
CPT/HCPCS: 36415; 80051; 82310; 82565; 82570; 84156; 84520

== ENCOUNTER 2025-01-19 10:01 | Outpatient (AMB) | payer MEDICARE, OTHER, SELFPAY ==
--- NOTE | 2025-01-19 10:06 | HO.NEPHOV_ITS ---
Vital Signs 01/19/25 10:08 Height 5 ft 10.5 in Weight 242 lb 8 oz BMI 34.3 BP 132/86 Blood Pressure Location Lt brachial Position Sitting Pulse 63 Pulse Source Pulse Oximeter Pulse Oximetry (%) 96 Oxygen Delivery Method Room Air Intake Visit Reasons: 6 mo follow up Temperature Regulator Pyrometer Required: No Accompanied by: Self / Same As Patient Allergies No Known Allergies Allergy (Verified 01/19/25 10:08) HPI Comments Details: Kavon was seen in follow up for CKD and hypertension. He is longstanding diabetic. His blood sugars have been uncontrolled. His last A1c was still over 10. He denies retinopathy but has neuropathy. He has history of coronary artery disease needing PCI. He denies CVA, CHF, PAD, VINNY. He has not been taking Trulicity. He denies any pedal edema, nausea, vomiting, diarrhea, chest pain, shortness of breath, paroxysmal nocturnal dyspnea, orthopnea, hematuria or orthostatic symptoms. He denies taking excessive nonsteroidal anti- inflammatories. He does not have any epistaxis, recurrent sinusitis, sore throat, renal calculi, flank pain, hemoptysis, hematemesis, melena, new bone or back pain. His serum creatinine has been stable. He does not check his blood sugar or blood pressure at home. He did not have any new systemic complaints at the time of this office visit. COUNT INCLUDES THE [facility] Medical History (Updated 09/24/24 @ 09:56 by Shameka Saavedra PA-C) Hyperlipidemia Hypertension, essential, benign Diabetes mellitus type 2, controlled Personal history of nicotine dependence Obesity Mild dilation of ascending aorta Pneumonia Pleural thickening Pulmonary nodules COPD (chronic obstructive pulmonary disease) Family History Father Hypertension Social History Alcohol intake: current Patient Tobacco Use Status: Former Tobacco user Review of Systems Const All systems reviewed & are unremarkable except as noted in HPI and below Physical Exam Const General: comfortable and no acute distress Orientation/consciousness: patient oriented x3 HEENT Head: Yes normocephalic Mouth: Normal oral and palatal mucosa present Eyes EOM: EOMs intact bilaterally Neck Neck: Yes supple Resp Auscultation: clear to auscultation bilaterally Cardio Jugular venous distension: no JVD Rate: regular rate GI Palpation (GI): Soft to palpation Auscultation: normal bowel sounds General: Yes no CVA tenderness Back/Spine/Pelvis Back: no CVA tenderness Skin General skin exam: no rashes or lesions noted Neuro General: patient oriented x3 and moves all extremities Extrem General: Yes no pedal edema Results Reviewed Nephrology Results: Sodium, (135-145) 135 mmol/L 01/15/25 Potassium, (3.3-5.1) 4.5 mmol/L 01/15/25 Chloride, (96-108) 99 mmol/L 01/15/25 Carbon Dioxide, (22-29) 22 mmol/L 01/15/25 BUN, (9-16) 25 mg/dL H 01/15/25 Creatinine, (0.5-1.4) 1.79 mg/dL H 01/15/25 Calcium, (8.4-10.2) 10.0 mg/dL 01/15/25 Urine Creatinine 74.83 mg/dL 01/15/25 Protein/Creatinin Ratio TNP 01/15/25 Renal US 01/29/24 Assessment & Plan Assessment & Plan (1) Hypertension: Code(s): I10 - Essential (primary) hypertension Category: Medical Qualifiers: Hypertension type: primary hypertension Qualified Code(s): I10 - Essential (primary) hypertension (2) CKD (chronic kidney disease) stage 3, GFR 30-59 ml/min: Code(s): N18.30 - Chronic kidney disease, stage 3 unspecified Category: Medical Qualifiers: Chronic kidney disease stage 3 subtype: stage 3a (GFR 45-59) Qualified Code(s): N18.31 - Chronic kidney disease, stage 3a Plan Kavon has 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 His serum creatinine has been stable. He has history of hemoglobin A1c up to 11. He will benefit from weight loss. Secondary FSGS as well as vascular disease are in the differential. He is on Jardiance 25 mg daily. His last creatinine clearance was 81 mls/mt. Rest of work up negative . He was encouraged to check his blood sugar and blood pressure at home. He should maintain good hydration and avoid nonsteroidal anti-inflammatories. He is tolerating EFE inhibitor. I shall continue optimize his medications based on evolving data. Answered all questions. Orders: Orders Creatinine 6 Months I10 - Essential (primary) hypertension, N18.31 - Chronic kidney disease, stage 3a Electrolytes 6 Months I10 - Essential (primary) hypertension, N18.31 - Chronic kidney disease, stage 3a Hemoglobin A1c 6 Months I10 - Essential (primary) hypertension, N18.31 - Chronic kidney disease, stage 3a Blood Urea Nitrogen 6 Months I10 - Essential (primary) hypertension, N18.31 - Chronic kidney disease, stage 3a Coding Level of Care Code Est Pt Level 4 (30228) Diagnoses Primary hypertension I10 Hypertension type: primary hypertension Stage 3a chronic kidney disease N18.31 Chronic kidney disease stage 3 subtype: stage 3a (GFR 45-59)
[2025-01-19 10:08] VITALS: BP 132/86; PULSE 63; O2SAT 96; BMI 34.3
--- OUTSIDE RECORDS SUMMARY | 2025-01-19 11:12 | XMS_ITS | Clinical Summary ---
Author Organization [facility] Address [address] [place] [id number] Care Team Providers Care Stock Fitter Name Role Phone Brayan Bob MD Primary Care Provider [phone] Social History Tobacco Use Types Packs/Day Years [...] age to complete this topic Care Teams Stock Fitter Relationship Specialty Start Date End Date Brayan Bob MD PCP - General 02/16/16
--- OUTSIDE RECORDS SUMMARY | 2025-01-19 11:12 | XMS_ITS | Continuity of Care Document ---
Author Organization [facility] [address] [place] [address] Phone [phone] Care Team Providers Care Cellar Worker Name Role Phone Brayan Bob M.D. 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 06/04/2024 Freestyle Danna 2/[place]/Flash Glucose Monitoring Smuysi7Bgckpr Device use as directed with sensors for testing blood sugar 1units E11.42 Talya Villareal M.D. 10/12/2022 Freestyle Danna 2/Sensor/Flash Glucose Monitoring [id number] Misc 1 sensor to skin every fourteen days as directed 6units E11.42 Talya Villareal M.D. 07/17/[address] 1 by mouth every day 90tabs Talya Villareal M.D. 07/16/2022 Metformin HCL ER (Osm)500mg Tablets ER 24HR Take 4 tablets daily Talya Villareal M.D. 07/16/2022 Rkhurizmh5li/0.5ML Solution Pen-Inject 1 injection subcutaneously every week 6ml Talya Villareal M.D. 07/16/2022 Glipizide ER10mg Tablets ER 24HR Take 2 Tablets By Mouth Daily as Directed 180tabs Talya Villareal M.D. 03/22/2022 Pioglitazone APZ29il Tablets take 1 tablet by mouth every day 90tabs Talya Villareal M.D. 01/29/2022 Nebivolol HCL5mg Tablets Take 1 tablet daily Brayan Bob M.D. BD Pen Needle/Short/Ultra- Fine/31G X 8mm31G X 8 mm Misc Brayan Bob M.D. BD Pen Needle/Short/Ultra- Fine/31G X 8mm31G X 8 mm Misc 3 Times A Day Brayan Bob M.D. Basaglar Qagchjc132Tgzo/ML Solution Pen-Inject Inject 80 Units Into The Skin Once A Day Brayan Bob M.D. Jkygjpqgsm43ei Tablets Take 1 tablet daily Brayan Bob M.D. Atorvastatin Igoeabw74su Tablets Take 1 tablet daily Brayan Bob M.D. Vitamin [id number] Tablets ER 1 by mouth every day [...] with hyperglycemia I25.10 Athscl heart disease of [place] coronary artery w/o ang pctrs I10 Essential (primary) hypertension E11.42 Type 2 diabetes ernestina itus with diabetic polyneuropathy Assessments Date Code Description Provider 06/04/2024 E11.65 Type 2 diabetes mellitus with hyperglycemia Talya Villareal M.D. 06/04/2024 I25.10 Atherosclerotic heart disease of [place] coronary artery without angina pectoris Talya Villareal M.D. 06/04/2024 I10 Essential (primary) hyperten makayla Talya Villareal M.D. 06/04/2024 E11.42 Type 2 diabetes mellitus with diabetic polyneuropathy Talya Villareal M.D. Plan of Treatment Future Appointment(s):* 05/12/2025 3:15 pm - Talya Villareal M.D. at Main Office 07/16/2022 - Talya Villareal M.D.* E11.42 Type 2 diabetes mellitus with diabetic polyneuropathy * I25.10 Atherosclerotic heart disease of [place] coronary artery without angina pectoris * I10 Essential (primary) hypertension * Functional Status Description No Information Available Mental Status Description No Information Available Referrals Description No Information Available
== END 2025-01-19 10:16 | disposition home or self-care (01) ==
LOC: HO.HKAS 10:02
PROVIDERS: PCP Internal Medicine; Visit Provider Internal Medicine Nephrology
DX: I10 Essential (primary) hypertension (principal); N18.31 Chronic kidney disease, stage 3a
CPT/HCPCS: 99214

== ENCOUNTER → 2025-01-19 10:01 | Outpatient (BNVA) | payer MEDICARE, OTHER, SELFPAY | PROVIDERS: PCP Internal Medicine; Visit Provider Internal Medicine Nephrology | DX: I12.9 Hypertensive chronic kidney disease with stage 1 through stage 4 chronic kidney disease, or unspecified chronic kidney disease (principal); N18.31 Chronic kidney disease, stage 3a | CPT/HCPCS: 99212 ==